=== PATIENT | female | born 1975 | race Two or more races ===

== ENCOUNTER 2016-11-19 17:33 | Emergency (ER) | payer MEDICAID ==
[~2016-11-19] VITALS: Ht 165.1 cm; Wt 76.2 kg
[2016-11-19 17:38] VITALS: BP 158/83
== END 2016-11-19 20:55 | disposition left against medical advice (07) ==
LOC: ER 17:47
DX: R06.02 Shortness of breath (principal); R00.2 Palpitations; R07.89 Other chest pain; Z53.21 Procedure and treatment not carried out due to patient leaving prior to being seen by health care provider
CPT/HCPCS: 93005